=== PATIENT | male | born 1980 | race Caucasian/White ===

== ENCOUNTER 2017-12-16 16:29 | Emergency (ER) | END 2017-12-16 22:55 | disposition home or self-care (01) ==

== ENCOUNTER 2017-12-17 06:58 | Emergency (ER) | END 2017-12-17 08:36 | disposition home or self-care (01) ==

== ENCOUNTER 2017-12-17 09:18 | Emergency (ER) | END 2017-12-17 10:30 | disposition left against medical advice (07) ==

== ENCOUNTER 2018-01-02 13:49 | Emergency (ER) | END 2018-01-02 16:26 | disposition home or self-care (01) ==

== ENCOUNTER 2018-02-23 10:46 | Emergency (ER) | END 2018-02-23 11:47 | disposition home or self-care (01) ==